=== PATIENT | male | born 1965 | race Caucasian/White ===

== ENCOUNTER 2021-11-21 11:07 | Emergency (ER) | payer OTHER, SELFPAY ==
[2021-11-21 11:11] VITALS: BP 143/91; PULSE 90; RESP 14; TEMP 36; O2SAT 97; BMI 30.7
[2021-11-21] MEDS: TET,DIPH,PERTUSS(ACELL),VAC/PF 0.5 ML SYRINGE IM (12:44)
[2021-11-21] MEDS: BACITRACIN OINT 0.9 GM PCKT 2 APPLIC TOP (13:26)
[2021-11-21] MEDS: LIDOCAINE 2% INJ SDV 1 ML SUBCUT (13:26)
--- NOTE | 2021-11-21 13:49 | ED.WOUNDLAC ---
HPI - Wound/Laceration <Ryan Tracy PA-C - Last Filed: 11/21/21 19:07> General Chief Complaint: Wound/Laceration Stated Complaint: Left hand lac Time Seen by Provider: 11/21/21 12:21 Source: patient Mode of arrival: Ambulatory History of Present Illness HPI narrative: Patient is a 56-year-old male presents to the ER today with laceration to the left on hand. Patient states he was using a razor blade to scrape a window and cut his hand. Patient states he was some bleeding from the hand and he would like to have it sutured if necessary. Patient denies any other concerns at this time. Related Data Allergies Allergy/AdvReac Type Severity Reaction Status Date / Time No Known Drug Allergies Allergy Verified 11/21/21 11:11 Review of Systems <Ryan Tracy PA-C - Last Filed: 11/21/21 19:07> Review of Systems Narrative: R.O.S.: General: No fever, chills or fatigue. Cardiovascular: No chest pain or palpitations Respiratory: No S.O.B. HEENT: No congestion, ear pain, rhinorrhea, sore throat or tinnitus Gastrointestinal: No nausea or vomiting Skin: No rash or associated abnormalities Neurological: Awake, alert and in not apparent distress. No Headaches, changes in vision or other related neurological concerns. Patient History <Ryan Tracy PA-C - Last Filed: 11/21/21 19:07> Social History Smoking Status: Unknown if ever smoked Smoking Status: Unknown if ever smoked alcohol intake frequency: holidays/special occasions only Substance Use Type: does not use Exam <Ryan Tracy PA-C - Last Filed: 11/21/21 19:07> Narrative Exam Narrative: Physical Exam: ? General: normal appearance, well developed, well nourished, alert, and awake. Not in acute distress. ? Head: Normocephalic, no lesions. Chest: Lungs CTAB, no rales, rhonchi or wheezes. ?? Heart: RRR, no murmurs, rubs or gallops. Eyes: PERRLA, EOM's full, conjunctivae clear. ? Neuro: Physiological, no localizing findings, CN3-12 intact. ?? Extremities: Warm, well perfused, FROM, no deformities, no edema. ?? Skin: Patient has a 1 cm laceration to the base of the left proximal thumb on the volar side of the hand. The area has moderate bleeding at this time with very minor erythema or swelling. ? PSYCHIATRIC: The mood is good, no blunted affect. Speech is clear. Thought process is linear, thought content is appropriate. The voice is without significant inflection. Initial Vital Signs Initial Vital Signs: Vital Signs Temperature 96.8 F L 11/21/21 11:11 Pulse Rate 90 11/21/21 11:11 Respiratory Rate 14 11/21/21 11:11 Blood Pressure 143/91 H 11/21/21 11:11 Pulse Oximetry 97 11/21/21 11:11 Oxygen Delivery Method 11/21/21 11:11 <Jody Hidalgo DO - Last Filed: 11/26/21 07:04> Initial Vital Signs Initial Vital Signs: Vital Signs Temperature 96.8 F L 11/21/21 11:11 Pulse Rate 90 11/21/21 11:11 Respiratory Rate 14 11/21/21 11:11 Blood Pressure 143/91 H 11/21/21 11:11 Pulse Oximetry 97 11/21/21 11:11 Oxygen Delivery Method 11/21/21 11:11 Procedures <Ryan Tracy PA-C - Last Filed: 11/21/21 19:07> Laceration Repair Laceration 1: Site: hand Side (If applicable): left Description: linear Depth: simple, single layer Local Anesthetic: lidocaine 2% Skin layer closed with: nylon Skin layer suture size: 4-0 Number of sutures: 2 Technique: simple, interrupted Course <Ryan Tracy PA-C - Last Filed: 11/21/21 19:07> Orders Ordered: Discontinued Medications Bacitracin (Bacitracin Oint 0.9 Gm Pckt) 2 applic TOP NOW ONE Stop: 11/21/21 13:16 Last Admin: 11/21/21 13:26 Dose: 1 applic Documented By: AT Diphtheria/Tetanus/Acell Pertussis (Tet,Diph,Pertuss(Acell),Vac/Pf 0.5 Ml Syringe) 0.5 ml IM .ONCE ONE Stop: 11/21/21 12:22 Last Admin: 11/21/21 12:44 Dose: 0.5 ml Documented By: KENNEDY Lidocaine HCl (Lidocaine 2% Inj Sdv) 1 ml SUBCUT NOW ONE Stop: 11/21/21 13:31 Last Admin: 11/21/21 13:26 Dose: 1 ml Documented By: AT Vital Signs Vital signs: Vital Signs - 8 hr 11/21/21 11:11 Temperature 96.8 F L Pulse Rate 90 Respiratory Rate 14 Blood Pressure 143/91 H Pulse Oximetry 97 Oxygen Delivery Method Room Air <Jody Hidalgo DO - Last Filed: 11/26/21 07:04> Orders Ordered: Discontinued Medications Bacitracin (Bacitracin Oint 0.9 Gm Pckt) 2 applic TOP NOW ONE Stop: 11/21/21 13:16 Last Admin: 11/21/21 13:26 Dose: 1 applic Documented By: AT Diphtheria/Tetanus/Acell Pertussis (Tet,Diph,Pertuss(Acell),Vac/Pf 0.5 Ml Syringe) 0.5 ml IM .ONCE ONE Stop: 11/21/21 12:22 Last Admin: 11/21/21 12:44 Dose: 0.5 ml Documented By: KENNEDY Lidocaine HCl (Lidocaine 2% Inj Sdv) 1 ml SUBCUT NOW ONE Stop: 11/21/21 13:31 Last Admin: 11/21/21 13:26 Dose: 1 ml Documented By: AT Vital Signs Vital signs: Vital Signs - 8 hr 11/21/21 11:11 Temperature 96.8 F L Pulse Rate 90 Respiratory Rate 14 Blood Pressure 143/91 H Pulse Oximetry 97 Oxygen Delivery Method Room Air MDM - Wound/Laceration <Ryan Tracy PA-C - Last Filed: 11/21/21 19:07> MDM Narrative Medical decision making narrative: Patient is a 56-year-old male who presented to the ER today with complaint of a laceration to the left hand. Physical exam revealed a 1 cm laceration to the volar left hand. Two single interrupted sutures were used to close the laceration without complications. Triple antibiotic ointment and dressing was applied the patient was advised to return 7 days for suture removal. Patient agrees with plan. Discharge Plan Departure Patient Disposition: Home Clinical Impression: Hand laceration Instructions: DI for Laceration Repair Activity Restrictions/Additional Instructions: *You have been diagnosed with [left hand laceration repair. I suggest you use the antibiotic ointment and dressing as instructed. I Also suggest you refrain from extremely sure of the area or allowing any foreign debris in the area. I also suggest she return to the ER in 7 days for suture removal. Also please return to the ER showing any emergent concerns arise.] *What to do: *Please continue to take your regular medications as directed. [ ] New medication prescriptions sent to your pharmacy: [ ] [ ] New medication written as a paper prescription [x] No new medications given *Please follow up with your primary care provider in 2-3 days, call for an appointment. Let them know you were seen in the Emergency Department and that we ask that you be seen in follow up. We will electronically transmit a record of today's note if your PCP is in our system *If you do not have a primary care provider please contact the [facility] Resource line at [phone]. They will ask some questions about your medical history and help get you set up with a doctor in the community. *Return to Emergency Department if you should have any new, worsening or concerning symptoms, such as [fever greater than 101 F, shaking chills, worsening pain, persistent vomiting or other bothersome symptoms] Referrals: Dino Dykes DO [Primary Care Provider] - Visit Report Forms: Patient Portal/API <Jody Hidalgo DO - Last Filed: 11/26/21 07:04> Dmitriy ED Attending Dmitriyature Attestation: I was immediately available in the department for consultation. Documentation has been reviewed. I agree with assessment and plan.
== END 2021-11-21 14:22 | disposition home or self-care (01) ==
PROVIDERS: Emergency Provider Physician Assistant; PCP Student in an Organized Health Care Education/Training Program
DX: S61.412A Laceration without foreign body of left hand, initial encounter (principal); W26.9XXA Contact with unspecified sharp object(s), initial encounter; Z23 Encounter for immunization
CPT/HCPCS: 12001; 90471; 99283; 90715

== ENCOUNTER → 2025-02-06 15:59 | Outpatient (CLI) | payer OTHER, SELFPAY ==
--- NOTE | 2025-02-06 16:02 | DI.MRI.S_ITS ---
PROCEDURE: MR ANKLE RT WO CON INDICATIONS: Achilles tendinitis, RT leg TECHNIQUE: Noncontrast sagittal T1 spin echo and T2 fast spin echo with fat saturation, axial proton density fast spin echo and T2 fast spin echo with fat saturation, coronal T1 spin echo and T2 fast spin echo with fat saturation through the ankle/hindfoot. COMPARISON: [facility], MR, ANKLE WITHOUT CONTRAST, 05/08/2014, 14:42. FINDINGS: Image quality: Excellent. Bones and joints: No bone marrow contusions or fractures. No hindfoot coalitions. No osteochondral injuries of the talar dome. Small plantar and dorsal calcaneal enthesophytes are seen. No pathologic joint effusions. Medial structures: The posterior tibialis, flexor digitorum longus, and flexor hallucis longus tendons are intact. The posterior tibial neurovascular bundle appears normal within the tarsal tunnel, without extrinsic mass effect. The deltoid ligament and spring ligament are intact. Lateral structures: The anterior talofibular ligament is thickened with intrasubstance T2 hyperintense signal. The calcaneofibular, and posterior talofibular ligaments appear intact. More superiorly, the anterior and posterior tibiofibular ligaments appear intact, as is the intermalleolar ligament. The tibiofibular syndesmosis is normal in width at 2 mm or less. The peroneus longus and brevis tendons demonstrate normal location and morphology. The sinus tarsi demonstrates normal fatty signal, without edema, fibrosis, or cyst formation. Anterior structures: The tibialis anterior, extensor hallucis longus, and extensor digitorum longus tendons appear intact. The dorsal talonavicular ligament appears intact. Posterior and plantar structures: Tendinosis and low-grade partial-thickness tear involving distal Achilles tendon extending to its posterior calcaneal insertion is seen. Thickened medial band of plantar fascia at its plantar calcaneal insertion is also noted. No abductor digiti quinti muscle atrophy to suggest [place] neuropathy. IMPRESSION: 1. Tendinosis and low-grade partial-thickness tear involving distal 4 centimeter segment of Achilles tendon extending to its posterior calcaneal insertion. No full- thickness Achilles tendon rupture. 2. Well-defined plantar and dorsal calcaneal enthesophytes. Thickened medial band of plantar fascia at its calcaneal insertion concerning for low-grade plantar fasciitis. 3. No marrow edema. No fracture or dislocation. No osteochondral injuries of talar dome. 4. Low-grade intrasubstance partial-thickness tear involving anterior talofibular ligament. No full-thickness ankle ligament rupture. Dictated by: Derek Burkett M.D. on 02/07/2025 at 9:57 Approved by: Derek Burkett M.D. on 02/07/2025 at 10:25
== END ==
PROVIDERS: PCP Nurse Practitioner Family
DX: M76.61 Achilles tendinitis, right leg (principal); S86.011A Strain of right Achilles tendon, initial encounter; M77.31 Calcaneal spur, right foot; S93.491A Sprain of other ligament of right ankle, initial encounter
CPT/HCPCS: 73721

== ENCOUNTER → 2025-04-03 07:16 | Outpatient (CLI) | payer OTHER, SELFPAY ==
--- NOTE | 2025-04-03 07:17 | DI.CT.S_ITS ---
PROCEDURE: CT SINUS SCREEN WO CON INDICATIONS: Chronic sinus drainage; foul; malodorous TECHNIQUE: Noncontrast 3.0 mm axial images acquired from the frontal sinuses to the mid- sella, with coronal and sagittal reformats. For radiation dose reduction, the following was used: automated exposure control, adjustment of mA and/or kV according to patient size. COMPARISON: None. FINDINGS: Image quality: Excellent. Maxillary Sinuses: Prior maxillary antrostomies. Mild bilateral paranasal sinus mucosal thickening, more pronounced on the left with small fluid layering posteriorly.. Ethmoid Air Cells: Prior ethmoidectomies. Mild diffuse paranasal sinus mucosal thickening. Sphenoid Sinuses: No bony remodeling or destruction. Mild mucosal thickening bilaterally. Some frothy secretions are noted. Frontal Sinuses: No bony remodeling or destruction. Sinuses are clear. Ostiomeatal Complexes: Prior maxillary antrostomies. No Salas cells. Miscellaneous: Partial resection of the right inferior turbinate. Visualized intra-orbital contents are normal. No sydni bullosa or paradoxical turbinate curvature. Mild leftward nasal septal deviation. IMPRESSION: Prior endoscopic sinonasal surgery. Mild diffuse mucosal thickening. Small air-fluid level in the left maxillary sinus and frothy secretions in the sphenoid sinus may suggest acute on chronic sinusitis. Dictated by: Walter Oconnell M.D. on 04/03/2025 at 9:55 Approved by: Walter Oconnell M.D. on 04/03/2025 at 9:58
== END ==
PROVIDERS: PCP Nurse Practitioner Family; Referring Provider Family Medicine; Visit Provider Family Medicine
DX: J32.8 Other chronic sinusitis (principal)
CPT/HCPCS: 70486